=== PATIENT | female | born 1980 | race Caucasian/White ===

== ENCOUNTER 2020-06-09 07:50 | Inpatient (IN) | payer BC, MEDICAID ==
[2020-06-09] VITALS (20 sets, daily range): BP systolic 113–152; BP diastolic 84–107
[~2020-06-09] VITALS: Ht 160 cm; Wt 72.7 kg
[~2020-06-09 07:50] MED LIST: DIPH25CA83 PO; FAMO-128 PO
[2020-06-09 08:27] LABS: CLARITY,URINE SLIGHTLY CLOUDY (Clear); COLOR,URINE YELLOW (Yellow); GLUCOSE, URINE NEGATIVE (Neg); KETONES,URINE NEGATIVE (Neg); LEUKOCYTE ESTERASE ,URINE SMALL (Neg); NITRITES, URINE NEGATIVE (Neg); OCCULT BLOOD,URINE NEGATIVE (Neg); PROTEIN,URINE NEGATIVE (Neg)
[2020-06-09 08:28] LABS: UA COLLECTION TYPE CLN CATCH MIDSTREAM
[2020-06-09 08:34] LABS: SQUAMOUS EPITHELIAL CELL,UR MODERATE /LPF (FEW)
[2020-06-09 08:35] LABS: BACTERIA,URINE 1+ /HPF (Neg); RBC,URINE 0-2 /HPF (0-2); WBC CLUMPS,URINE FEW /HPF (NEGATIVE)
[2020-06-09 08:53] LABS: BASOPHILS # (AUTO) 0.1 X10'3 (0-0.2); BASOPHILS % (AUTO) 0.6 % (0-1); EOSINOPHILS # (AUTO) 0.2 X10'3 (0-0.9); EOSINOPHILS % (AUTO) 1.9 % (0-6); HEMATOCRIT 44.4 % (35.0-45.0); HEMOGLOBIN 14.5 g/dl (12.0-16.0); LYMPHOCYTES # (AUTO) 2.2 X10'3 (1.1-4.8); LYMPHOCYTES % (AUTO) 23.3 % (21-51); MEAN CORPUSCULAR HEMOGLOBIN 27.7 PG (27.0-31.0); MEAN CORPUSCULAR HGB CONC 32.6 g/dL (33.0-36.5); MEAN CORPUSCULAR VOLUME 84.8 FL (78-98); MEAN PLATELET VOLUME 9.7 FL (7.4-10.4); MONOCYTES # (AUTO) 0.7 X10'3 (0-0.9); NEUTROPHILS # (AUTO) 6.1 X10'3 (1.8-7.7); NEUTROPHILS % (AUTO) 66.2 % (42-75); PLATELET COUNT 206 X10'3 (140-440); RED BLOOD COUNT 5.24 X10'6 (4.20-5.60); RED CELL DISTRIBUTION WIDTH 14.3 % (11.5-14.5); WHITE BLOOD COUNT 9.2 X10'3 (4.5-11.0)
[2020-06-09 09:09] LABS: ALANINE AMINOTRANSFERASE 56 U/L (12-78); ALBUMIN 3.2 G/DL (3.4-5.0); ALKALINE PHOSPHATASE 67 IU/L (46-116); ANION GAP 10 (8-16); ASPARTATE AMINO TRANSFERASE 43 U/L (10-37); BILIRUBIN,TOTAL 0.7 MG/DL (0.1-1.0); BLOOD UREA NITROGEN 20 MG/DL (7-18); CALCIUM 8.4 MG/DL (8.5-10.1); CHLORIDE 103 MMOL/L (99-107); CREATININE 0.74 MG/DL (0.40-0.90); GLUCOSE 104 MG/DL (70-104); LIPASE 151 U/L (73-393); POTASSIUM 3.3 MMOL/L (3.5-5.1); SODIUM 137 MMOL/L (135-145); TOTAL PROTEIN 6.4 G/DL (6.4-8.2); eGFR 86 ML/MIN
[2020-06-09] MEDS ORDERED: normal saline 1000ML IV soln IVB ONE (11:25)
[2020-06-09] MEDS ORDERED: ceFOXitin 1 GM/D5W 50mL IVPB 50 ML IV ONE (11:25)
[2020-06-09] MEDS ORDERED: TETanus/Pertussis (Acell)/Diphther VAC/PF (Tdap-Adult) 0.5ml syringe IMVAC ONE (11:30)
[2020-06-09 11:44] LABS: PARTIAL THROMBOPLASTIN TIME 26 SECONDS (22-32)
[2020-06-09] MEDS ORDERED: magnesium 2GM in 50ml NS 50 ML IV ONE (11:45)
[2020-06-09] MEDS ORDERED: potassium Cl 10 mEq/100mL bag IV ONE (11:45)
[2020-06-09] MEDS ORDERED: magnesium hydroxide 30ml (MOM) UD suspension PO PRN (12:00)
[2020-06-09] MEDS ORDERED: ondansetron/PF 4mg/2ml inj IV PRN ×2 (12:00→18:15)
[2020-06-09] MEDS ORDERED: acetaminophen 325mg tablet PO PRN (12:00)
[2020-06-09] MEDS ORDERED: mag hydrox/Alum hydrox/simeth 30ml oral suspension PO PRN (12:00)
[2020-06-09 12:01] LABS: ETHANOL < 0.010 GM/DL (0.0-0.010); MAGNESIUM 1.3 MG/DL (1.5-2.4)
[2020-06-09] MEDS ORDERED: NO HOME MEDS (12:01)
--- NOTE | 2020-06-09 12:31 | NUR ---
Received report from ED RN Amy Pt being taken to the OR prior to coming to floor.
[2020-06-09] MEDS ORDERED: hydrALAZINE 20mg/ml inj. IV PRN (12:50)
[2020-06-09] MEDS ORDERED: BUPIVAcaine/PF 2.5 mg/ml (0.25%) 30ml vial ONE (13:17)
[2020-06-09 14:09] LABS: URINE HCG NEGATIVE (NEG)
[2020-06-09 14:20] LABS: URINE AMPHETAMINE SCREEN POSITIVE (Neg); URINE BARBITUATE SCREEN NEGATIVE (Neg); URINE BENZODIAZEPINES SCREEN NEGATIVE (Neg); URINE CANNABINOID SCREEN NEGATIVE (Neg); URINE COCAINE SCREEN NEGATIVE (Neg); URINE METHADONE SCREEN NEGATIVE (Neg); URINE OPIATE SCREEN NEGATIVE (Neg); URINE PHENCYCLIDINE SCREEN NEGATIVE (Neg)
[2020-06-09] MEDS ORDERED: sevoflurane 250ml liquid IH ONE (16:04)
[2020-06-09] MEDS ORDERED: phenylephrine 10mg/ml inj. ONE (16:04)
[2020-06-09] MEDS ORDERED: fentaNYL/PF 50MCG/1 ML 2ML syringe ONE ×2 (16:11→17:18)
[2020-06-09] MEDS ORDERED: midazolam 2 mg/2 ml injection ONE (16:11)
[2020-06-09] MEDS ORDERED: ceFOXitin 1000 MG inj ONE ×2 (16:39)
[2020-06-09] MEDS ORDERED: dexamethasone sod phosphate 4mg/ml inj. ONE (16:39)
[2020-06-09] MEDS ORDERED: rocuronium 10mg/ml inj IV ONE (16:39)
[2020-06-09] MEDS ORDERED: LIDOcaine 2% (20mg/ml) 5ml vial ONE (16:39)
[2020-06-09] MEDS ORDERED: propofol inj 20 ML IV ONE (16:39)
[2020-06-09] MEDS ORDERED: ondansetron/PF 4mg/2ml inj ONE (16:40)
[2020-06-09] MEDS ORDERED: neostigmine methylsulfate 1 MG/ML 10ml vial ONE (16:40)
[2020-06-09] MEDS ORDERED: glycopyrrolate 0.2mg/ml inj ONE (16:40)
[2020-06-09] MEDS ORDERED: sugammadex 200mg/2ml injection IV ONE (17:33)
--- NOTE | 2020-06-09 17:45 | NUR ---
Pt sats holding at 92-93%, MD at bedside states okay to transfer to floor.
--- NOTE | 2020-06-09 17:59 | NUR ---
Received from OR via surgical bed, accompanied by Anesthesiologist Jessica and report given by Anesthesiolgist. VS MD mark removing ET tube, mask to 10L, lap sites x3 to abdomen CDI. Blood band on, 20G PIV x2 LR IVF running 100cc/hr. SCDs on.
[2020-06-09 18:06] LABS: ISTAT ANION GAP 12 (8-12); ISTAT BUN 17 mg/dL (6-19); ISTAT CL 102 mmol/L (99-107); ISTAT CREATININE 0.6 mg/dL (0.6-1.1); ISTAT GLUCOSE 131 mg/dL (70-104); ISTAT HGB 13.6 g/dl (12.0-16.0); ISTAT Hct 40 %PCV (35-48); ISTAT IONIZED CALCIUM 1.07 mmol/L (1.03-1.32); ISTAT K 3.9 mmol/L (3.5-5.1); ISTAT NA 137 mmol/L (135-145); ISTAT TOTAL CO2 23 mmol/L (24-32); ISTAT eGFR > 90 ML/MIN; POC BUN/CREATININE RATIO 28.3 (6.6-38.0)
[2020-06-09 18:07] LABS: BASOPHILS % (AUTO) 0.4 % (0-1); EOSINOPHILS # (AUTO) 0.3 X10'3 (0-0.9); EOSINOPHILS % (AUTO) 2.3 % (0-6); HEMOGLOBIN 10.8 g/dl (12.0-16.0); LYMPHOCYTES # (AUTO) 2.5 X10'3 (1.1-4.8); LYMPHOCYTES % (AUTO) 21.5 % (21-51); MEAN CORPUSCULAR HEMOGLOBIN 27.2 PG (27.0-31.0); MEAN CORPUSCULAR HGB CONC 31.7 g/dL (33.0-36.5); MEAN CORPUSCULAR VOLUME 85.7 FL (78-98); MONOCYTES # (AUTO) 0.6 X10'3 (0-0.9); MONOCYTES % (AUTO) 5.2 % (2-12); NEUTROPHILS # (AUTO) 8.2 X10'3 (1.8-7.7); NEUTROPHILS % (AUTO) 70.6 % (42-75); PLATELET COUNT 149 X10'3 (140-440); RED BLOOD COUNT 3.97 X10'6 (4.20-5.60); RED CELL DISTRIBUTION WIDTH 14.5 % (11.5-14.5); WHITE BLOOD COUNT 11.6 X10'3 (4.5-11.0)
[2020-06-09] MEDS ORDERED: ringers solution, lacted 1,000 ML IV SCH (18:13)
[2020-06-09] MEDS ORDERED: meperidine/PF 25mg/ml syringe IV PRN ×3 (18:15)
[2020-06-09] MEDS ORDERED: proCHLORperazine 10 MG/2 ml inj IV PRN (18:15)
[2020-06-09] MEDS ORDERED: morphine 4 MG/ML inj SYRINge IV PRN (18:15)
[2020-06-09] MEDS ORDERED: morphine 2 MG/ML inj. syringe IV PRN (18:15)
--- NOTE | 2020-06-09 18:29 | NUR ---
Pt not arrived on unit report given to GE Kessler.
[2020-06-09] MEDS ORDERED: ipratropium/albuterol 3ml nebule NEB PRN (19:25)
--- NOTE | 2020-06-09 19:25 | NUR ---
Called MD to update on patient status, sats around 87-90 on 3-4L, requested RT treatment, orders received.
--- NOTE | 2020-06-09 19:59 | NUR ---
Report called to receiving nurse. Transferred via surgical bed. Belongings sent with patient. Special Issues communicated to receiving nurse Robert CAROLINA who is at bedside. BLL and call light within reach. Lap sites remain CDI.
--- NOTE | 2020-06-09 20:20 | NUR ---
After arriving to floor pt began stating she was in much more pain and sats back down to mid 80s. Patient placed on O2 mask at 6L, sats at 89-90%. Called MD again to inform she has mild decompensation and is now complaining of more pain. He states to order chest xray, monitor next set of labs being drawn now, okay to keep on mask at 6-8L, okay to give pain meds, and have Dr Charis jacobson hospitalist follow labs and assess for possible 1g tylenol if liver enzymes improved. All this information relayed to bedside RN. Pt continues to be easy to arouse despite having moments of low sats. Left patient at 91-93% on 7L O2 mask. Continuous pulse ox on. Floor RN Robert at beside and comfortable with new orders.
[2020-06-09 20:50] LABS: ALBUMIN 3.4 G/DL (3.4-5.0); ANION GAP 13 (8-16); BLOOD UREA NITROGEN 15 MG/DL (7-18); BUN/CREATININE RATIO 16.3 (6.6-38.0); CALCIUM 7.5 MG/DL (8.5-10.1); CHLORIDE 103 MMOL/L (99-107); CREATININE 0.92 MG/DL (0.40-0.90); GLUCOSE 131 MG/DL (70-104); SODIUM 136 MMOL/L (135-145); TOTAL CARBON DIOXIDE 20.2 MMOL/L (24-32); eGFR 67 ML/MIN
[2020-06-09 20:52] LABS: POTASSIUM 4.1 MMOL/L (3.5-5.1)
--- NOTE | 2020-06-09 21:00 | NUR ---
pt now awake A&O, O2 sat 98% on 4l by NC, resp rate of 20, per pt her pain is manageable at 6/10
[2020-06-09] MEDS: normal saline 1000ml 1,000 ML IV SCH ×2 (21:45→21:56)
[2020-06-09] MEDS: HYDROmorphone inj. 0.5 MG/0.5 ML DISP.SYRIN IV PRN (23:14)
[2020-06-10] VITALS (7 sets, daily range): BP systolic 116–148; BP diastolic 74–110
--- NOTE | 2020-06-10 06:09 | NUR ---
Problems reprioritized. Patient report given, questions answered & plan of care reviewed with Darío CAROLINA.
[2020-06-10 06:19] LABS: ALBUMIN 3.3 G/DL (3.4-5.0); ANION GAP 14 (8-16); BLOOD UREA NITROGEN 15 MG/DL (7-18); BUN/CREATININE RATIO 17.2 (6.6-38.0); CALCIUM 7.4 MG/DL (8.5-10.1); CHLORIDE 102 MMOL/L (99-107); CREATININE 0.87 MG/DL (0.40-0.90); GLUCOSE 127 MG/DL (70-104); POTASSIUM 4.2 MMOL/L (3.5-5.1); SODIUM 135 MMOL/L (135-145); TOTAL CARBON DIOXIDE 19.4 MMOL/L (24-32); eGFR 71 ML/MIN
--- NOTE | 2020-06-10 06:24 | NUR ---
Patient in room PCU 3016. I have received report from Robert CAROLINA and had the opportunity to ask questions and assume patient care.
[2020-06-10 07:19] LABS: BASOPHILS % (AUTO) 0.3 % (0-1); EOSINOPHILS % (AUTO) 0 % (0-6); HEMATOCRIT 39.8 % (35.0-45.0); HEMOGLOBIN 12.9 g/dl (12.0-16.0); LYMPHOCYTES # (AUTO) 0.8 X10'3 (1.1-4.8); LYMPHOCYTES % (AUTO) 5.6 % (21-51); MEAN CORPUSCULAR HEMOGLOBIN 27.8 PG (27.0-31.0); MEAN CORPUSCULAR HGB CONC 32.5 g/dL (33.0-36.5); MEAN CORPUSCULAR VOLUME 85.6 FL (78-98); MEAN PLATELET VOLUME 10.3 FL (7.4-10.4); MONOCYTES # (AUTO) 0.6 X10'3 (0-0.9); NEUTROPHILS # (AUTO) 12.7 X10'3 (1.8-7.7); NEUTROPHILS % (AUTO) 90.1 % (42-75); PLATELET COUNT 209 X10'3 (140-440); RED BLOOD COUNT 4.65 X10'6 (4.20-5.60); RED CELL DISTRIBUTION WIDTH 14.4 % (11.5-14.5); WHITE BLOOD COUNT 14.1 X10'3 (4.5-11.0)
[2020-06-10] MEDS: normal saline 1000ml 1,000 ML IV SCH ×2 (08:46→17:56)
[2020-06-10] MEDS: HYDROmorphone inj. 0.5 MG/0.5 ML DISP.SYRIN IV PRN ×2 (08:54→21:00)
--- NOTE | 2020-06-10 08:54 | NUR ---
0854 0.5 mg Dilaudid did not scan, threw in sharps, administered 0879
[2020-06-10] MEDS: lisinopril 5mg tablet PO SCH (13:30)
--- NOTE | 2020-06-10 13:47 | NUR ---
Paged Dr. Kim. Oh Rasmussen. [id number]. FYI patients Mg was 1.3 on 06/09. No replacement orders? Please advise. Ty. Chanel [phone]
[2020-06-10] MEDS ORDERED: magnesium 4gm in 100ml NS 100 ML IV PRN (13:50)
[2020-06-10] MEDS ORDERED: magnesium 2GM in 50ml NS 50 ML IV PRN (13:50)
[2020-06-10] MEDS: magnesium Cl slow-release 64mg tablet PO PRN (14:09)
[2020-06-10 14:10] LABS: MAGNESIUM 1.1 MG/DL (1.5-2.4)
--- NOTE | 2020-06-10 16:15 | NUR ---
Problems reprioritized. Patient report given, questions answered & plan of care reviewed with Latesha CAROLINA.
--- NOTE | 2020-06-10 17:00 | NUR ---
patient transferred to [address] [place] [address] by wheelchair, patient belongings sent with patient, patient condition stable.
--- NOTE | 2020-06-10 18:17 | NUR ---
Problems reprioritized. Patient report given, questions answered & plan of care reviewed with ALFRED CAROLINA.
--- NOTE | 2020-06-10 18:19 | NUR ---
AGREE WITH PHYSICAL ASSESSMENT DONE, NO CHANGES IN CONDITION Addendum: 06/10/20 at 1819 by Kaelyn Cutler RN Amended: Links added.
--- NOTE | 2020-06-10 18:20 | NUR ---
Received report from primary care nurse Latesha CAROLINA. Assumed patient care. Patient is awake and alert on 2LNC in no apparent distress eating her dinner. Call light and items of frequent use within reach. Will continue to monitor for changes.
[2020-06-10 20:19] LABS: BASOPHILS % (AUTO) 0.3 % (0-1); EOSINOPHILS # (AUTO) 0.1 X10'3 (0-0.9); EOSINOPHILS % (AUTO) 0.5 % (0-6); HEMATOCRIT 40.8 % (35.0-45.0); HEMOGLOBIN 13.1 g/dl (12.0-16.0); LYMPHOCYTES # (AUTO) 2.1 X10'3 (1.1-4.8); MEAN CORPUSCULAR HEMOGLOBIN 27.5 PG (27.0-31.0); MEAN CORPUSCULAR HGB CONC 32.1 g/dL (33.0-36.5); MEAN CORPUSCULAR VOLUME 85.7 FL (78-98); MEAN PLATELET VOLUME 9.7 FL (7.4-10.4); MONOCYTES # (AUTO) 1.5 X10'3 (0-0.9); MONOCYTES % (AUTO) 9.2 % (2-12); NEUTROPHILS # (AUTO) 12.5 X10'3 (1.8-7.7); PLATELET COUNT 210 X10'3 (140-440); RED BLOOD COUNT 4.76 X10'6 (4.20-5.60); RED CELL DISTRIBUTION WIDTH 14.9 % (11.5-14.5); WHITE BLOOD COUNT 16.3 X10'3 (4.5-11.0)
[2020-06-11] VITALS: BP 117/88
[2020-06-11] MEDS: normal saline 1000ml 1,000 ML IV SCH (02:08)
[2020-06-11] MEDS: LORazepam 2 mg/ml vial IV PRN ×2 (03:28→12:32)
[2020-06-11] MEDS: HYDROmorphone inj. 0.5 MG/0.5 ML DISP.SYRIN IV PRN ×3 (03:31→13:35)
[2020-06-11] MEDS: magnesium Cl slow-release 64mg tablet PO PRN ×2 (03:42→07:32)
[2020-06-11 05:25] LABS: ALBUMIN 2.7 G/DL (3.4-5.0); ANION GAP 9 (8-16); BLOOD UREA NITROGEN 14 MG/DL (7-18); BUN/CREATININE RATIO 16.9 (6.6-38.0); CALCIUM 7.5 MG/DL (8.5-10.1); CHLORIDE 106 MMOL/L (99-107); CREATININE 0.83 MG/DL (0.40-0.90); GLUCOSE 122 MG/DL (70-104); MAGNESIUM 1.3 MG/DL (1.5-2.4); POTASSIUM 3.7 MMOL/L (3.5-5.1); SODIUM 137 MMOL/L (135-145); TOTAL CARBON DIOXIDE 22.4 MMOL/L (24-32); eGFR 75 ML/MIN
[2020-06-11 05:33] LABS: BASOPHILS % (AUTO) 0.2 % (0-1); EOSINOPHILS # (AUTO) 0.1 X10'3 (0-0.9); EOSINOPHILS % (AUTO) 0.9 % (0-6); HEMATOCRIT 36.8 % (35.0-45.0); LYMPHOCYTES # (AUTO) 1.8 X10'3 (1.1-4.8); LYMPHOCYTES % (AUTO) 13.4 % (21-51); MEAN CORPUSCULAR HEMOGLOBIN 27.5 PG (27.0-31.0); MEAN CORPUSCULAR HGB CONC 32.5 g/dL (33.0-36.5); MEAN CORPUSCULAR VOLUME 84.7 FL (78-98); MEAN PLATELET VOLUME 9.9 FL (7.4-10.4); MONOCYTES # (AUTO) 1.1 X10'3 (0-0.9); MONOCYTES % (AUTO) 8.3 % (2-12); NEUTROPHILS # (AUTO) 10.1 X10'3 (1.8-7.7); NEUTROPHILS % (AUTO) 77.2 % (42-75); PLATELET COUNT 199 X10'3 (140-440); RED BLOOD COUNT 4.35 X10'6 (4.20-5.60); RED CELL DISTRIBUTION WIDTH 14.6 % (11.5-14.5); WHITE BLOOD COUNT 13.1 X10'3 (4.5-11.0)
--- NOTE | 2020-06-11 06:10 | NUR ---
Patient in room [facility]. I have received report from Reva CAROLINA and had the opportunity to ask questions and assume patient care.
--- NOTE | 2020-06-11 06:11 | NUR ---
Reported off to Thad CAROLINA. Patient is resting with relaxed and unlabored respirations on 3LNC in no apparent distress. Call light and items of frequent use within reach.
[2020-06-11 07:00] VITALS: BP 159/119
[2020-06-11] MEDS: lisinopril 5mg tablet PO SCH (07:33)
[2020-06-11 11:00] VITALS: BP 153/109
[2020-06-11] MEDS ORDERED: LISI-642 PO (11:18)
[2020-06-11] MEDS ORDERED: HYDR-4383 PO ×2 (11:18→11:20)
--- NOTE | 2020-06-11 12:36 | NUR ---
O2 Sat at rest on room air:_86__% If below 89%: Recovery O2 Sat at rest on _3__LPM:__93_%:___% via___nasal cannula__(mask/nasal cannula, etc..) No further documentation is necessary. If O2 Sat did not drop below 89% on room air,ambulate patient on room air. O2 Sat while ambulating on room air:__88_% Recovery O2 Sat while ambulating on __3_LPM:_93__% No further documentation is necessary. If patient does not drop below 89% while ambulating, he/she does not qualify for home O2. Addendum: 06/11/20 at 1241 by Thad Bergeron RN Paged [employer] about the home O2 qualification documentation and that patient met the criteria
--- NOTE | 2020-06-11 12:54 | NUR ---
PAGER ID: [phone] MESSAGE: Surgical Flr Thad CAROLINA ext [phone]. RE: Joleen Rasmussen. Patient O2 sat dropped on room air 86% and also during ambulation. home manager Pura said we cannot get home O2 for her for gallbladder surgery. Do you still want her to be discharge?
[2020-06-11] MEDS ORDERED: furosemide 40mg/4ml inj IV ONE ×2 (12:55→18:05)
[2020-06-11 13:15] VITALS: BP 147/112
--- NOTE | 2020-06-11 15:54 | NUR ---
Encouraged patient to do incentive spirometer every hour while awake. Patient need reinforcement. So far patient able to do the IS up to 1000
--- NOTE | 2020-06-11 17:58 | NUR ---
PAGER ID: [phone] MESSAGE: Surgical Cristela Oneil RN ext [phone]. RE: Joleen Rasmussen. Patient has been having low sats again 85-86% on 3lpm/nc, HR 99-100 BP 147/102. Right now shes on 5 lpm/nc 89-90%, sleepy but will wake up
--- NOTE | 2020-06-11 18:06 | NUR ---
Dr Kim called back after he was paged for low pulse ox on patient. Dr Kim is aware patient is alert and oriented x4. Patient got up to bedside commode with 1 person SBA. Patient commode was emptied and she had 1700ml's in commode. Patients hands are very cold we are warming them with warm blanket to get better pulse ox reading. Received orders from Dr Kim for 40mg IV lasix x1 now and get a better pulse ox reading, if patients pulse ox continues to be low and she requires oxygen 5L ok to do ABG's. DC discharge orders. Primary RN Thad aware.
--- NOTE | 2020-06-11 18:54 | NUR ---
Patient currently 94-95% on 3lpm/nc. Encouraged to use IS hourly while awake. Problems reprioritized. Patient report given, questions answered & plan of care reviewed with Pat RN
[2020-06-11 19:00] VITALS: BP 160/90
--- NOTE | 2020-06-11 19:13 | NUR ---
Patients O2 sats 92% 3L ABG's ordered Paged RT
[2020-06-11 19:20] VITALS: BP 147/97
[2020-06-11 19:50] LABS: ABG BASE EXCESS -0.9 mmol/L (-2.0-2.0); ABG OXYGEN SATURATION 92.1 % (94-97); ABG PCO2 (T) 27.6 mmHg (32.0-45.0); ABG PO2 (T) 60.2 mmHg (75.0-100.0); ALLEN'S TEST POSITIVE; FCOHb 0.6 % (0.0-3.9); FLOW 3 L/min; FMetHb 0.1 % (0.0-1.5); FO2Hb 91.5 % (94-97)
[2020-06-11] MEDS: ipratropium/albuterol 3ml nebule NEB SCH (20:18)
[2020-06-11] MEDS ORDERED: LORazepam 1 MG tablet PO ONE (20:20)
[2020-06-11] MEDS: budesonide 0.5mg/2ml UD nebule IH SCH (20:21)
[2020-06-12 00:29] VITALS: BP 151/94
[2020-06-12 05:21] LABS: BASOPHILS % (AUTO) 0.4 % (0-1); EOSINOPHILS # (AUTO) 0.2 X10'3 (0-0.9); EOSINOPHILS % (AUTO) 1.8 % (0-6); HEMATOCRIT 38.2 % (35.0-45.0); HEMOGLOBIN 12.4 g/dl (12.0-16.0); LYMPHOCYTES # (AUTO) 1.8 X10'3 (1.1-4.8); LYMPHOCYTES % (AUTO) 15.6 % (21-51); MEAN CORPUSCULAR HEMOGLOBIN 27.7 PG (27.0-31.0); MEAN CORPUSCULAR HGB CONC 32.5 g/dL (33.0-36.5); MEAN CORPUSCULAR VOLUME 85.1 FL (78-98); MEAN PLATELET VOLUME 9.6 FL (7.4-10.4); MONOCYTES % (AUTO) 8.7 % (2-12); NEUTROPHILS # (AUTO) 8.5 X10'3 (1.8-7.7); NEUTROPHILS % (AUTO) 73.5 % (42-75); PLATELET COUNT 208 X10'3 (140-440); RED CELL DISTRIBUTION WIDTH 14.8 % (11.5-14.5); WHITE BLOOD COUNT 11.6 X10'3 (4.5-11.0)
[2020-06-12 05:36] LABS: ALBUMIN 2.8 G/DL (3.4-5.0); ANION GAP 9 (8-16); BLOOD UREA NITROGEN 7 MG/DL (7-18); BUN/CREATININE RATIO 9.5 (6.6-38.0); CHLORIDE 103 MMOL/L (99-107); CREATININE 0.74 MG/DL (0.40-0.90); GLUCOSE 115 MG/DL (70-104); MAGNESIUM 1.5 MG/DL (1.5-2.4); POTASSIUM 3.1 MMOL/L (3.5-5.1); SODIUM 138 MMOL/L (135-145); TOTAL CARBON DIOXIDE 25.9 MMOL/L (24-32); eGFR 86 ML/MIN
[2020-06-12 07:00] VITALS: BP 152/101
--- NOTE | 2020-06-12 07:04 | NUR ---
Patient in room [facility] 350. I have received report from GE Novak and had the opportunity to ask questions and assume patient care.
[2020-06-12] MEDS: ipratropium/albuterol 3ml nebule NEB SCH ×3 (07:39→20:59)
[2020-06-12] MEDS: budesonide 0.5mg/2ml UD nebule IH SCH (07:39)
[2020-06-12] MEDS ORDERED: potassium Cl 20 mEq SR tablet PO PRN (07:40)
[2020-06-12] MEDS ORDERED: potassium CL 10mEq/100ml bag 100 ML IV PRN ×2 (07:40)
[2020-06-12] MEDS: lisinopril 5mg tablet PO SCH (07:45)
[2020-06-12] MEDS: potassium Cl 20 mEq SR tablet PO PRN ×3 (07:48→15:59)
[2020-06-12] MEDS: K and/or MAG REPLACEMENT MC SCH ×2 (07:48→20:00)
[2020-06-12] MEDS ORDERED: furosemide 40mg/4ml inj IV ONE (10:10)
[2020-06-12] MEDS ORDERED: benzocaine/menthol oral lozeng 1 EACH BOX MM PRN (10:30)
[2020-06-12 11:30] VITALS: BP 150/102
[2020-06-12] MEDS: benzocaine/menthol oral lozeng 1 EACH BOX MM PRN ×3 (11:54→19:33)
--- NOTE | 2020-06-12 18:41 | NUR ---
Patient in room [facility] 350. I have received report from FALGUNI CAROLINA and had the opportunity to ask questions and assume patient care. Addendum: 06/12/20 at 1842 by Lizzette Gonzalez RN Amended: Links added.
--- NOTE | 2020-06-12 19:06 | NUR ---
Problems reprioritized. Patient report given, questions answered & plan of care reviewed with GE Crocker. Pt eating on side of the bed. stating she was still hungry and wanted more food. O2sat 94% on 4L n/c. Pt ambulate 300ft. K+ replaced per protocol.
--- NOTE | 2020-06-12 19:35 | NUR ---
a/o playing games om phone. given throat lounger per request
[2020-06-12 20:27] VITALS: BP 144/89
--- NOTE | 2020-06-12 21:25 | NUR ---
on 4 l humidified 02 sats at 93-95% with this. switched over by Rt.
--- NOTE | 2020-06-12 22:35 | NUR ---
SATS STAYING BETWEEN 93-95% ON 4L 02 NC. PT SNORING.
[2020-06-13] VITALS: BP 138/97
--- NOTE | 2020-06-13 01:30 | NUR ---
PT AWOKE REQUESTED SOMETHING FOR SLEEP. GIVEN FRESH WATER INFORMED SHE DID NOT HAVE ANYTHING ORDERED. TOLD HER SHE WAS SNORING EARLIER SAID THATS OK GUESS MY SLEEP TIMES ARE OFF.
--- NOTE | 2020-06-13 02:39 | NUR ---
PT SNORING AT THIS TIME SATS AT 93% ON 4L NC.
--- NOTE | 2020-06-13 04:20 | NUR ---
resting eyes closed 93% sat no s&s of distress.
[2020-06-13 05:46] LABS: BASOPHILS % (AUTO) 0.5 % (0-1); EOSINOPHILS # (AUTO) 0.3 X10'3 (0-0.9); EOSINOPHILS % (AUTO) 3.4 % (0-6); HEMATOCRIT 37.5 % (35.0-45.0); HEMOGLOBIN 12.1 g/dl (12.0-16.0); LYMPHOCYTES # (AUTO) 1.8 X10'3 (1.1-4.8); LYMPHOCYTES % (AUTO) 19.2 % (21-51); MEAN CORPUSCULAR HEMOGLOBIN 27.7 PG (27.0-31.0); MEAN CORPUSCULAR HGB CONC 32.4 g/dL (33.0-36.5); MEAN CORPUSCULAR VOLUME 85.7 FL (78-98); MEAN PLATELET VOLUME 9.7 FL (7.4-10.4); MONOCYTES # (AUTO) 0.8 X10'3 (0-0.9); MONOCYTES % (AUTO) 8.3 % (2-12); NEUTROPHILS # (AUTO) 6.3 X10'3 (1.8-7.7); NEUTROPHILS % (AUTO) 68.6 % (42-75); PLATELET COUNT 225 X10'3 (140-440); RED BLOOD COUNT 4.37 X10'6 (4.20-5.60); RED CELL DISTRIBUTION WIDTH 14.7 % (11.5-14.5); WHITE BLOOD COUNT 9.2 X10'3 (4.5-11.0)
[2020-06-13 05:58] LABS: ALBUMIN 2.7 G/DL (3.4-5.0); ANION GAP 6 (8-16); BLOOD UREA NITROGEN 6 MG/DL (7-18); BUN/CREATININE RATIO 9.7 (6.6-38.0); CALCIUM 8.5 MG/DL (8.5-10.1); CHLORIDE 104 MMOL/L (99-107); CREATININE 0.62 MG/DL (0.40-0.90); GLUCOSE 103 MG/DL (70-104); MAGNESIUM 1.5 MG/DL (1.5-2.4); POTASSIUM 3.9 MMOL/L (3.5-5.1); SODIUM 138 MMOL/L (135-145); TOTAL CARBON DIOXIDE 27.7 MMOL/L (24-32); eGFR > 90 ML/MIN
--- NOTE | 2020-06-13 06:30 | NUR ---
Problems reprioritized. Patient report given, questions answered & plan of care reviewed with GRETTA CAROLINA. Addendum: 06/13/20 at 0630 by Lizzette Gonzalez RN Amended: Links added.
--- NOTE | 2020-06-13 06:46 | NUR ---
Patient in room [facility] 350. I have received report from GE Crocker and had the opportunity to ask questions and assume patient care.
[2020-06-13 07:00] VITALS: BP 146/106
[2020-06-13] MEDS: budesonide 0.5mg/2ml UD nebule IH SCH (07:20)
[2020-06-13] MEDS: ipratropium/albuterol 3ml nebule NEB SCH ×2 (07:20→15:00)
[2020-06-13] MEDS: K and/or MAG REPLACEMENT MC SCH (08:00)
[2020-06-13] MEDS ORDERED: furosemide 40mg/4ml inj IV SCH (08:00)
[2020-06-13] MEDS: lisinopril 5mg tablet PO SCH (08:52)
[2020-06-13] MEDS: HYDROmorphone inj. 0.5 MG/0.5 ML DISP.SYRIN IV PRN (10:19)
[2020-06-13 11:15] VITALS: BP 133/102
--- NOTE | 2020-06-13 14:05 | NUR ---
Pt ambulated 300ft on R/A, O2sat 93%. informed for possible D/C home this afternoon.
[2020-06-13] MEDS ORDERED: CARV3.12 PO (16:13)
--- NOTE | 2020-06-13 16:57 | NUR ---
PAGER ID: [phone] MESSAGE: [facility] med/surg. [phone]. Pt Grady, RM 350-A. Pt needs prescription for [place]. Can I pick it by your office? thank you Pt has been D/C waiting on Prescription before she leaves.
--- NOTE | 2020-06-13 17:25 | NUR ---
Pt D/C'd home in stable condition. IV removed with cannula intact. medication, and discharge orders given. [place] prescription provided prior discharge. Pt was escorted to main lobby on w/c, left the hospital via private vehicle accompanied by family member.
[2020-06-13] MEDS ORDERED: carVEDilol 3.125mg tablet PO SCH (20:00)
== END 2020-06-13 17:19 | disposition home or self-care (01) | DRG 417 ==
LOC: ER 07:51 → ED HOLD 11:56 → PCU 3S 20:13 → OBSVTOIN 06-10 14:15 → SUR 3N 06-10 16:56
PROVIDERS: ADMIT Family Medicine; ATTEND Family Medicine
PROC: 3E0234Z Introduction of Serum, Toxoid and Vaccine into Muscle, Percutaneous Approach (ICD-10-PCS; 2020-06-09)
PROC: 0FT44ZZ Resection of Gallbladder, Percutaneous Endoscopic Approach (ICD-10-PCS; principal; 2020-06-09 16:04)
DX: K80.00 Calculus of gallbladder with acute cholecystitis without obstruction (principal); I50.31 Acute diastolic (congestive) heart failure; J96.00 Acute respiratory failure, unspecified whether with hypoxia or hypercapnia; F41.9 Anxiety disorder, unspecified; I11.0 Hypertensive heart disease with heart failure; E87.6 Hypokalemia; K82.8 Other specified diseases of gallbladder; Z82.49 Family history of ischemic heart disease and other diseases of the circulatory system; Z83.3 Family history of diabetes mellitus; Z98.891 History of uterine scar from previous surgery; Z23 Encounter for immunization
CPT/HCPCS: 93306; 96365; 96375; 99285; Z7506; Z7508; 36415; 36600; 71045; 76700; 80047; 80048; 80053; 80305; 80320; 81001; 81025; 82803; 83690; 83735; 85018; 85025; 85610; 85730; 86885; 86900; 86901; 86920; 87081; 87088; 90471; 90715; 93005; 94640; 94760; A4215; A4618; A7000; C9399; G0378; J0360; J0694; J1100; J1170; J1940; J2001; J2060; J2175; J2250; J2370; J2405; J2704; J2710; J3010; J3490; J7030; J7120; J7626

== ENCOUNTER 2025-02-10 11:15 | Day surgery (SDC) | payer MEDICAID ==
[2025-02-10] VITALS (7 sets, daily range): BP systolic 112–132; BP diastolic 63–82; PULSE 75–93; RESP 14–16; TEMP 97.5; O2SAT 92–95
[~2025-02-10] VITALS: Ht 160 cm; Wt 72.4 kg
[~2025-02-10 11:15] MED LIST changes: +CARV3.12 PO; -DIPH25CA83 PO; -FAMO-128 PO; +HYDR-4383 PO; +LISI-642 PO
[2025-02-10] MEDS ORDERED: LORazepam 0.5 MG tablet PO PRN (11:30)
[2025-02-10] MEDS ORDERED: SILD20TA14 PO (11:47)
[2025-02-10] MEDS ORDERED: AMLO5TAB16 PO (11:47)
[2025-02-10] MEDS ORDERED: SELE1TAB (11:47)
[2025-02-10] MEDS ORDERED: verapamil 2.5 mg/ml inj IV ONE (12:09)
[2025-02-10] MEDS ORDERED: LIDOcaine 1% (10mg/ml) 2ml vial ONE (12:09)
[2025-02-10] MEDS ORDERED: iohexol 350MG/ML 100ml bottle IV ONE (12:10)
[2025-02-10] MEDS ORDERED: heparin 1,000unit/ml 10ml vial 0 ML ONE (12:10)
[2025-02-10] MEDS ORDERED: fentaNYL/PF 50MCG/1 ML 2ML syringe ONE (12:10)
[2025-02-10] MEDS ORDERED: midazolam 1 mg/ML 2ml injection ONE (12:10)
[2025-02-10] MEDS ORDERED: nitroGLYCERIN 500mcg/5mL D5W 0 ML IV ONE (12:14)
[2025-02-10] MEDS: diphenhydrAMINE 25mg capsule PO PRN (12:56)
[2025-02-10] MEDS: normal saline 1,000 ML IV SCH (12:56)
[2025-02-10] MEDS ORDERED: HYDROcodone/acetaminophen 5mg/325mg tablet PO PRN (14:50)
[2025-02-10] MEDS ORDERED: HYDROcodone/acetaminophen 10/325mg tab PO PRN (14:50)
[2025-02-11 08:16] LABS: ISTAT HGB MIX 13.9 g/dl (12.0-16.0); ISTAT Hct MIX 41 %PCV (35-45); ISTAT O2 SATURATION MIX VENOUS 54 % (60-80); ISTAT SOURCE BLNK
== END 2025-02-10 16:15 | disposition home or self-care (01) ==
LOC: SSTAY O 11:15
PROVIDERS: ATTEND Student in an Organized Health Care Education/Training Program
DX: I27.20 Pulmonary hypertension, unspecified (principal); I10 Essential (primary) hypertension; K74.60 Unspecified cirrhosis of liver; G47.33 Obstructive sleep apnea (adult) (pediatric); Z79.899 Other long term (current) drug therapy; Z98.890 Other specified postprocedural states
CPT/HCPCS: 82803; 85014; 93005; 93451; 99152; J1644; J2003; J2250; J3010; J7030; Q0163; Q9967; A6258; C1751; C1769; J3490